=== PATIENT | male | born 1990 | race African-American/Black ===

== ENCOUNTER 2025-05-02 07:23 | Emergency (ER) | payer MEDICAID ==
[~2025-05-02] VITALS: Ht 177.8 cm; Wt 104.0 kg
[2025-05-02 07:27] VITALS: TEMP 36.9; O2SAT 98
[2025-05-02] MEDS ORDERED: CIPR-263 MT (08:37)
[2025-05-02] MEDS ORDERED: METR-167 MT (08:37)
[2025-05-02 08:54] VITALS: BP 151/92; PULSE 70; RESP 12; O2SAT 100
== END 2025-05-02 08:57 | disposition home or self-care (01) ==
LOC: ER 07:23
DX: K61.0 Anal abscess (principal)
CPT/HCPCS: 99283

== ENCOUNTER 2025-06-26 04:27 | Emergency (ER) | payer MEDICAID ==
[~2025-06-26] VITALS: Ht 170.2 cm; Wt 92.2 kg
[~2025-06-26 04:27] MED LIST: CIPR-263 MT; METR-167 MT
[2025-06-26 04:41] VITALS: O2SAT 99
[2025-06-26] MEDS ORDERED: BO1 TP (05:21)
[2025-06-26 05:26] VITALS: BP 146/93; PULSE 84; RESP 16; TEMP 36.9; O2SAT 98
== END 2025-06-26 05:31 | disposition home or self-care (01) ==
LOC: ER 05:07
DX: L91.8 Other hypertrophic disorders of the skin (principal); Z93.3 Colostomy status
CPT/HCPCS: 99282